=== PATIENT | female | born 1990 | race Caucasian/White ===

== ENCOUNTER 2017-04-29 15:34 | Emergency (ER) | payer BC ==
[~2017-04-29] VITALS: Ht 149.9 cm; Wt 49.0 kg
[~2017-04-29 15:34] MED LIST: MOTRIN600 MG PO; NORCO 5/3251 TABLET PO; PRENATAL TABLE1 EAC3 PO
[2017-04-29] MEDS ORDERED: ATIVAN0.5 MG PO (17:44)
[2017-04-29] MEDS ORDERED: ATARAX,VISTARIL25 MG PO (17:44)
[2017-04-29 17:57] VITALS: BP 158/98
== END 2017-04-29 17:57 | disposition home or self-care (01) ==
LOC: EME 15:34
DX: F41.0 Panic disorder [episodic paroxysmal anxiety] (principal); J45.909 Unspecified asthma, uncomplicated; F32.9 Major depressive disorder, single episode, unspecified; Z87.891 Personal history of nicotine dependence; Z88.1 Allergy status to other antibiotic agents
CPT/HCPCS: 99281; 99283